=== PATIENT | female | born 1990 | race Caucasian/White ===

== ENCOUNTER 2021-11-16 21:47 | Emergency (ER) | payer OTHER ==
[~2021-11-16] VITALS: Ht 165.1 cm; Wt 87.5 kg
[2021-11-16] MEDS ORDERED: OXYCODONE HCL5 MG PO (22:32)
[2021-11-16] MEDS ORDERED: CYCLOBENZAPRINE10 MG PO (22:32)
[2021-11-17] MEDS ORDERED: ZOFRAN4 MG PO (00:48)
== END 2021-11-17 01:53 | disposition home or self-care (01) ==
LOC: ED 21:47
DX: R10.9 Unspecified abdominal pain (principal); N20.0 Calculus of kidney; Z88.6 Allergy status to analgesic agent
CPT/HCPCS: 74176; 81001; 84703; 85025; 96374; 99284-25; A9270; J2405; J7030